=== PATIENT | male | born 1960 | race Caucasian/White ===

== ENCOUNTER → 2019-05-21 | Outpatient (CLI) | payer OTHER | LOC: M SLEEP HO 11:12 | PROVIDERS: ATTEND Nurse Practitioner Family | DX: R06.83 Snoring (principal) ==

== ENCOUNTER → 2020-08-21 | Outpatient (CLI) | payer OTHER ==
--- NOTE | 2020-08-21 12:14 | REPVR ---
PROCEDURE INFORMATION: Exam: MR Lumbar Spine Without Contrast. Exam date and time: 08/21/2020 11:53 AM Age: 59 years old Clinical indication: Lumbago with sciatica; Left; Additional info: Lumbago with sciatica left side TECHNIQUE: Imaging protocol: Multiplanar magnetic resonance images of the lumbar spine without intravenous contrast. COMPARISON: No relevant prior studies available. FINDINGS: Vertebrae: There is no fracture or listhesis. Normal vertebral body alignment and heights are preserved. Spinal cord: Normal signal. No cord compression. L1-L2: There is shallow disc bulging. There is moderate facet hypertrophy. There is mild bilateral neural foraminal narrowing. L2-L3: There is diffuse disc bulging. There is mild facet hypertrophy. There is mild bilateral neural foraminal narrowing. L3-L4: There is diffuse disc bulging. There is moderate facet hypertrophy. There is mild bilateral neural foraminal narrowing. L4-L5: There is diffuse disc bulging. There is mild to moderate facet hypertrophy. There is there is mild bilateral neural foraminal narrowing. L5-S1: There is diffuse disc bulging. There is moderate facet hypertrophy. There is moderate bilateral neural foraminal narrowing. Soft tissues: Unremarkable. IMPRESSION: Degenerative disc disease and spondylosis, with multilevel [id number] neural foraminal narrowing. Electronically signed by: Sonam Tsai On 08/21/2020 12:14:52 PM
== END ==
LOC: M RAD 10:38
PROVIDERS: ATTEND Nurse Practitioner Family
DX: M51.26 Other intervertebral disc displacement, lumbar region (principal); M47.816 Spondylosis without myelopathy or radiculopathy, lumbar region

== ENCOUNTER → 2021-12-15 | Outpatient (CLI) | payer OTHER ==
[~2021-12-15] MED LIST: ISOVUE-300 61% 50ML VIAL As Ordered ONE; LIDOCAINE 1% MDV 20ML VIAL As Ordered ONE; PROHANCE 279.3MG/ML 5ML VIAL As Ordered ONE
== END ==
LOC: M RADPRO 06:18
PROVIDERS: ATTEND Orthopaedic Surgery
DX: M24.152 Other articular cartilage disorders, left hip (principal); M24.852 Other specific joint derangements of left hip, not elsewhere classified; M25.552 Pain in left hip
CPT/HCPCS: 27093; 73723; 77002; A9576; Q9967

== ENCOUNTER → 2022-04-18 | Outpatient (REF) | payer OTHER | LOC: M SFHCDERM 13:50 | PROVIDERS: ATTEND Nurse Practitioner Family | DX: L82.0 Inflamed seborrheic keratosis (principal) ==

== ENCOUNTER → 2022-04-18 | Outpatient (CLI) | payer OTHER ==
[~2022-04-18] MED LIST changes: -PROHANCE 279.3MG/ML 5ML VIAL As Ordered ONE; +TRIAMCINOLONE ACETONIDE SUSP 40 MG/ML VIAL (J3301) As Ordered ONE
== END ==
LOC: M RADPRO 11:48
PROVIDERS: ATTEND Orthopaedic Surgery
DX: M70.62 Trochanteric bursitis, left hip (principal)
CPT/HCPCS: 20610; 76000; J3301; Q9967

== ENCOUNTER → 2023-02-08 | Outpatient (CLI) | payer MEDICARE, OTHER | LOC: M PLAIMG 14:56 | PROVIDERS: ATTEND Orthopaedic Surgery | DX: M16.12 Unilateral primary osteoarthritis, left hip (principal) ==